=== PATIENT | female | born 1950 | race Caucasian/White ===

== ENCOUNTER → 2016-07-21 | Outpatient (CLI) | payer MEDICARE, BC ==
[~2016-07-21] MED LIST: ACETAMINOPHEN PO; ALB/IPRATROPIUM/1 E1 INH; ALBUTEROL17 GM INH; CIPRO PO; CIPRO250 MG PO; CLEOCIN HCL300 M1 PO; GUAIFENESIN LA600 M1 PO; LASIX20 MG PO; LIPITOR20 MG PO; LORTAB 5/500 TA1 TA2 PO; METOPROLOL SUCC50 MG PO; NITROGLYGERIN0.4 MG SL; PERCOCET5/325 PO; PREDNISONE10 MG/DOSE PO; PRINIVIL10 MG PO; SYMBICORT INH; TYLENOL PO; TYLENOL325 M1 PO
--- NOTE | ~2016-07-21 | NM86 ---
[facility] A Service of [facility] & [facility] RADIOLOGY TEXT RESULTS PATIENT: REGAN COLE LOCATION: [facility] : 48 UNIT #: [id number] AGE: [address]: Rubi Nix MD SEX: F ORDER DR: [id number] [facility] [address] [place], [place] [address] [id number] O MR#: [id number] Acc #: [id number] NAME: REGAN COLE. : 1950 SEX: F STUDY DATE/TIME: 07/21/2016 7:30 UNIT: [facility] ROOM: STUDY DESCRIPTION: NM Thyroid Img W Uptake Attending Physician: Rubi Nix M.D. Referring Physician: Rubi Nix M.D. Ordering Physician: Rubi Nix M.D. Primary Care Physician: Rubi Nix M.D. MEDICAL IMAGING REPORT This report is preliminary unless electronic signature is present EXAM Nuclear medicine thyroid uptake and scan 07/21/2016 HISTORY Left-side neck enlargement noticed 8 weeks ago. More raspy voice, weight gain over the past 5 months, heart palpitations or flutters, family history of goiter in a niece. Clearing her throat a lot. Hair loss. Abnormal labs. Fatigue. Some difficulty swallowing. COMPARISON Provided history states that a thyroid ultrasound was performed at Dr. Nix's office. Neither this report nor the images are available for correlation at the time of this dictation. SPECIAL NOTE: This study was originally performed and interpreted on 07/21/2016. The original dictation was performed by Dr. Vizcarra, as evidenced by the stored, online electronic voice clip. However, the original dictation was apparently lost, and redictation was requested today, 07/31/2016. FINDINGS Following the ingestion of 162.1 McCi I-123 in capsular form, pinhole images were obtained of the neck in the MUELLER, ANGOLAN and anterior projections 24 hours after ingestion. The right thyroid lobe is slightly larger than left. No hot or cold nodules are identified. The calculated 24-hour uptake is 30.2%. IMPRESSION 1. Mildly elevated 24-hour uptake 30.2% (normal at this institution between 10% to 30%). 2. No hot or cold nodules are seen. STAT * RESULT [facility] A Service of [facility] RADIOLOGY TEXT RESULTS PATIENT: REGAN COLE LOCATION: [facility] #: [id number] : 48 UNIT #: [id number] AGE: [address]: Rubi Nix MD SEX: F ORDER DR: Dictated by... Barbara Meraz M.D. THIS IS AN ELECTRONICALLY VERIFIED REPORT Barbara Meraz M.D. at 07/31/2016 11:45 AM CONOR/nicole TD: 07/31/2016 10:56 JOB #: [id number] MEDICAL IMAGING REPORT Page 1 of 1 COPY
== END | disposition home or self-care (01) ==
LOC: CNUC 07:06
DX: E04.1 Nontoxic single thyroid nodule (principal)
CPT/HCPCS: 78014; A9516